=== PATIENT | male | born 1935 | race Asian ===

== ENCOUNTER 2018-06-07 11:00 | Inpatient (IN) | payer OTHER ==
[~2018-06-07] VITALS: Ht 167.6 cm; Wt 68.6 kg
[2018-06-07 11:05] VITALS: Ht 167.6 cm; Wt 68.6 kg
[2018-06-07 11:41] LABS: BASOPHIL % 0.2 % (0-2); PLATELET COUNT 265 x10^3mcL (130-400); RED CELL DISTRIBUTION WIDTH 12.9 % (11.5-14.5)
[2018-06-07 11:57] LABS: CALCIUM 8.9 mg/dL (8.5-10.1); CARBON DIOXIDE 22.6 mmol/L (21-32); CHLORIDE SERUM 101 mmol/L (98-107); CREATININE SERUM 2.1 mg/dL (0.7-1.3); GLUCOSE SERUM 337 mg/dL (74-106); POTASSIUM SERUM 4.4 mmol/L (3.5-5.1); SODIUM SERUM 136 mmol/L (136-145)
[2018-06-07 12:10] LABS: ALBUMIN 3.8 g/dL (3.4-5.0); ALKALINE PHOSPHATASE 95 U/L (46-116); ALT/SGPT 42 U/L (16-63); AST/SGOT 27 U/L (15-37); FREE T4 1.21 ng/dL (0.76-1.46)
[2018-06-07 12:16] LABS: TOTAL PROTEIN, SERUM 8.3 g/dL (6.4-8.2)
[2018-06-07 12:47] LABS: microscopic required? YES; urine erythrocyte 1+ (NEGATIVE)
[2018-06-07 12:59] LABS: AMPHETAMINE QUAL UR NONE DETECTED (See below)
[2018-06-07] MEDS ORDERED: ATORVASTATIN CA40 M1 (15:29)
[2018-06-07] MEDS ORDERED: NATURAL IRON65 MG (15:29)
[2018-06-07] MEDS ORDERED: GOOD NEIGHBOR600 M1 (15:29)
[2018-06-07] MEDS ORDERED: IBUPROFEN400 MG (15:29)
[2018-06-07] MEDS ORDERED: GLUCOTROL5 MG (15:29)
[2018-06-07] MEDS ORDERED: BACLOFEN20 MG (15:29)
[2018-06-07] MEDS ORDERED: VERAPAMIL HCL120 M2 (15:29)
[2018-06-07] MEDS ORDERED: METFORMIN500 M1 (15:30)
[2018-06-07] MEDS ORDERED: AMLODIPINE BESYL5 M2 (15:30)
[2018-06-07] MEDS ORDERED: ZESTRIL20 MG (15:30)
[2018-06-07] MEDS ORDERED: JANUVIA100 M1 (15:31)
[2018-06-07 15:39] LABS: PHOSPHOROUS 3.5 mg/dL (2.5-4.9)
[2018-06-07 15:56] LABS: CHOLESTEROL/HDL RATIO 2.7
[2018-06-07 16:14] VITALS: BP 174/95
[2018-06-07 19:34] VITALS: BP 148/80
[2018-06-07 20:39] VITALS: BP 137/74
[2018-06-08 04:09] VITALS: BP 164/88
[2018-06-08 06:47] LABS: BASOPHIL % 0.2 % (0-2); PLATELET COUNT 240 x10^3mcL (130-400); RED CELL DISTRIBUTION WIDTH 12.8 % (11.5-14.5)
[2018-06-08 07:06] LABS: CALCIUM 8.3 mg/dL (8.5-10.1); CARBON DIOXIDE 23.6 mmol/L (21-32); CHLORIDE SERUM 106 mmol/L (98-107); CREATININE SERUM 1.7 mg/dL (0.7-1.3); GLUCOSE SERUM 120 mg/dL (74-106); POTASSIUM SERUM 4.2 mmol/L (3.5-5.1); SODIUM SERUM 140 mmol/L (136-145)
[2018-06-08 08:24] VITALS: BP 158/88
[2018-06-08 12:09] VITALS: BP 105/67
[2018-06-08 12:29] VITALS: BP 136/81
[2018-06-08 16:16] VITALS: BP 155/79
[2018-06-08 21:17] VITALS: BP 155/78
[2018-06-09 05:20] VITALS: BP 152/86
[2018-06-09 06:43] LABS: CARBON DIOXIDE 23.7 mmol/L (21-32); CHLORIDE SERUM 104 mmol/L (98-107); GLUCOSE SERUM 148 mg/dL (74-106); POTASSIUM SERUM 3.8 mmol/L (3.5-5.1); SODIUM SERUM 137 mmol/L (136-145)
[2018-06-09 06:44] LABS: CALCIUM 8.3 mg/dL (8.5-10.1); CREATININE SERUM 1.7 mg/dL (0.7-1.3); MAGNESIUM 1.8 mg/dL (1.8-2.4); PHOSPHOROUS 3.7 mg/dL (2.5-4.9)
[2018-06-09 08:05] VITALS: BP 160/81
[2018-06-09 09:05] LABS: BASOPHIL % 0.4 % (0-2); PLATELET COUNT 248 x10^3mcL (130-400); RED CELL DISTRIBUTION WIDTH 13.3 % (11.5-14.5)
[2018-06-09 11:44] VITALS: BP 147/83
[2018-06-09 18:10] VITALS: BP 140/86
[2018-06-09 20:43] VITALS: BP 151/84
[2018-06-10 05:41] VITALS: BP 132/74
[2018-06-10 06:15] LABS: CALCIUM 8.4 mg/dL (8.5-10.1); CARBON DIOXIDE 22.5 mmol/L (21-32); CHLORIDE SERUM 107 mmol/L (98-107); CREATININE SERUM 2.1 mg/dL (0.7-1.3); GLUCOSE SERUM 104 mg/dL (74-106); SODIUM SERUM 140 mmol/L (136-145)
[2018-06-10 06:42] LABS: BASOPHIL % 0.3 % (0-2); PLATELET COUNT 242 x10^3mcL (130-400); RED CELL DISTRIBUTION WIDTH 13.4 % (11.5-14.5)
[2018-06-10 09:51] VITALS: BP 141/85
[2018-06-10 12:16] VITALS: BP 147/83
[2018-06-10 18:46] VITALS: BP 146/77
[2018-06-10 20:23] VITALS: BP 157/86
[2018-06-11 05:28] VITALS: BP 158/84
[2018-06-11 06:36] LABS: CALCIUM 8.9 mg/dL (8.5-10.1); CARBON DIOXIDE 23.9 mmol/L (21-32); CHLORIDE SERUM 106 mmol/L (98-107); GLUCOSE SERUM 182 mg/dL (74-106); POTASSIUM SERUM 4.8 mmol/L (3.5-5.1); SODIUM SERUM 139 mmol/L (136-145)
[2018-06-11 07:01] LABS: BASOPHIL % 0.4 % (0-2); PLATELET COUNT 239 x10^3mcL (130-400); RED CELL DISTRIBUTION WIDTH 13.2 % (11.5-14.5)
[2018-06-11 08:00] VITALS: BP 132/74
[2018-06-11 12:30] VITALS: BP 148/84
[2018-06-11 18:15] VITALS: BP 136/71
[2018-06-11 20:28] VITALS: BP 139/74
[2018-06-12 05:31] VITALS: BP 144/76
[2018-06-12 09:49] VITALS: BP 144/76
[2018-06-12 10:25] VITALS: BP 150/84
== END 2018-06-12 16:51 | disposition home or self-care (01) | DRG 71 ==
LOC: ED 11:00 → DU 14:54 → MU 14:54 → DU 17:33 → MU 06-11 15:08
PROVIDERS: Emergency Medicine; ADMIT Internal Medicine
DX: G93.49 Other encephalopathy (principal); D68.69 Other thrombophilia; N17.9 Acute kidney failure, unspecified; E86.0 Dehydration; E11.65 Type 2 diabetes mellitus with hyperglycemia; M54.9 Dorsalgia, unspecified; I10 Essential (primary) hypertension; E04.1 Nontoxic single thyroid nodule; D64.9 Anemia, unspecified; Z68.25 Body mass index [BMI] 25.0-25.9, adult; Z79.84 Long term (current) use of oral hypoglycemic drugs; R55 Syncope and collapse; Z79.1 Long term (current) use of non-steroidal anti-inflammatories (NSAID)
CPT/HCPCS: 82962; 83880; 84439; 87804; 97110-GP; 97116-GP; G0480; J2270; J3490; J8597; Q0092